=== PATIENT | female | born 1985 | race African-American/Black ===

== ENCOUNTER 2017-05-16 13:52 | Inpatient (IN) | payer OTHER ==
[2017-05-16 15:35] VITALS: BMI 25.3
--- NOTE | 2017-05-16 16:37 | HP ---
CIWA Score - CIWA Score Nausea/Vomitin Muscle Tremors: 3 Anxiety: 3 Agitation: 3 Paroxysmal Sweats: 1-Minimal Palms Moist Orientation: 0-Oriented Tacttile Disturbances: 2-Mild Itch/Numbness/Burn Auditory Disturbances: 0-None Visual Disturbances: 0-None Headache: 0-None Present CIWA-Ar Total Score: 15 Admission ROS BHS - HPI Chief Complaint: DETOX TX FOR ALCOHOL DEPENDENCE Allergies/Adverse Reactions: Allergies Allergy/AdvReac Type Severity Reaction Status Date / Time No Known Allergies Allergy Verified 01/24/12 02:03 History of Present Illness: 32 Y/O AA/FEMALE WITH A HX OF ALCOHOL AND MARIJUANA DEPENDENCE SEEKING DETOX TX. Exam Limitations: No Limitations - Ebola screening Have you traveled outside of the country in the last 21 days: No Have you had contact with anyone from an Ebola affected area: No Have you been sick,other than usual withdrawal symptoms: No Do you have a fever: No - Review of Systems Constitutional: Chills, Loss of Appetite, Night Sweats, Changes in sleep EENT: reports: Blurred Vision (WEARS RX GLASSES), Tearing, Nose Congestion (DUE TO ENVRONMENTAL ALERGIES), Dental Problems (CRACKED FRONT TOOTH/WISDOM TEETH EXTRACTIONS) Respiratory: reports: No Symptoms reported Cardiac: reports: No Symptoms Reported GI: reports: Diarrhea, Nausea, Poor Appetite, Poor Fluid Intake, Vomiting, Abdominal cramping : reports: No Symptoms Reported Musculoskeletal: reports: Back Pain Integumentary: reports: No Symptoms Reported Neuro: reports: Headache, Tremors, Unsteady Gait Endocrine: reports: No Symptoms Reported Hematology: reports: Anemia Psychiatric: reports: Orientated x3, Anxious Other Systems: Reviewed and Negative Patient History - Patient Medical History Hx Anemia: Yes (IN THE PAST) Hx Asthma: No Hx Cancer: No Hx Cardiac Disorders: No Hx Hypertension: Yes (GESTATIONAL BUT ELEVATED TODAY 146/100) Hx Hypercholesterolemia: No HX Cerebrovascular Accident: No Hx Seizures: No Hx Diabetes: No Hx Gastrointestinal Disorders: No Hx Sexually Transmitted Disorders: No Hx Renal Disease (ESRD): No Hx Thyroid Disease: No Hx Human Immunodeficiency Virus (HIV): No (NEGATIVE HX) Hx Hepatitis C: No Hx Depression: No Hx Suicide Attempt: No (DENIES) Hx Bipolar Disorder: No Hx Schizophrenia: No - Patient Surgical History Past Surgical History: Yes Hx Neurologic Surgery: No Hx Cataract Extraction: No Hx Cardiac Surgery: No Hx Lung Surgery: No Hx Breast Surgery: No Hx Breast Biopsy: No Hx Abdominal Surgery: No Hx Appendectomy: No Hx Cholecystectomy: No Hx Genitourinary Surgery: No Hx Orthopedic Surgery: No Anesthesia Reaction: No - PPD History Previous Implant?: Yes Documented Results: Negative w/o proof Implanted On Prior [facility] Admission?: No PPD to be Administered?: Yes - Reproductive History Patient is a Female of Child Bearing Age (11 -55 yrs old): Yes Last Menstrual Period: 05/03/17 Patient : No - Smoking Cessation Smoking history: Current every day smoker Have you smoked in the past 12 months: Yes Aproximately how many cigarettes per day: 4 Hx Chewing Tobacco Use: No Initiated information on smoking cessation: Yes 'Breaking Loose' booklet given: 05/16/17 - Substance & Tx. History Hx Alcohol Use: Yes (VODKA/COGNAC/BEER) Hx Substance Use: Yes (MARIJUANA) Substance Use Type: Alcohol, Marijuana Hx Substance Use Treatment: Yes (LAST TX AT [facility]) - Substances Abused Alcohol Route: Oral Frequency: 3-6 times per week Amount used: 1/2 PT / 2 16oz BEER Age of first use: 15 Date of Last Use: 05/16/17 Marijuana/Hashish Route: Smoking Frequency: Daily Amount used: 4 BLUNTS Age of first use: 15 Date of Last Use: 05/16/17 Family Disease History - Family Disease History Family Disease History: Diabetes: Mother (HTN), Other: Mother Other Family History: UNCLE WITH DM AND HTN Admission Physical Exam S - Vital Signs Vital Signs: Vital Signs - 24 hr 05/16/17 15:32 Temperature 97.3 F L Pulse Rate 68 Respiratory 20 Rate Blood Pressure 140/90 - Physical General Appearance: Yes: Moderate Distress, Irritable, Anxious HEENTM: Yes: EOMI, Normocephalic, JABIER, Pharynx Normal Respiratory: Yes: Chest Non-Tender, Lungs Clear, Normal Breath Sounds, No Respiratory Distress Neck: Yes: No masses,lesions,Nodules, Supple, Trachea in good position Breast: Yes: Breast Exam Deferred Cardiology: Yes: Regular Rhythm, Regular Rate, S1, S2 Abdominal: Yes: Normal Bowel Sounds, Non Tender, Soft Genitourinary: Yes: Other (N/C) Back: Yes: Within Normal Limits Musculoskeletal: Yes: full range of Motion, Gait Steady Extremities: Yes: Normal Range of Motion, Non-Tender Neurological: Yes: tufting machine fixer II-XII NML intact, Fully Oriented, Alert Integumentary: Yes: Dry, Warm Lymphatic: Yes: Within Normal Limits - Diagnostic (1) Alcohol dependence with uncomplicated withdrawal Current Visit: Yes Status: Acute (2) Cannabis dependence, uncomplicated Current Visit: Yes Status: Acute (3) History of anemia Current Visit: Yes Status: Suspected Cleared for Admission [facility] - Detox or Rehab [facility] Level of Care: Medically Managed Detox Regimen/Protocol: Librium [facility] Breath Alcohol Content Breath Alcohol Content: 0 Urine Pregancy Test - Result Urine Test Results: Negative- NO Line Present Urine Drug Screen - Results Drug Screen Negative: No Urine Drug Screen Results: THC-Marijuana
[2017-05-16] MEDS ORDERED: NICOTINE POLACRILEX 2 MG GUM BC PRN (16:55)
[2017-05-16] MEDS ORDERED: chlordiazePOXIDE HCL 25 MG CAPSULE PO ONE (16:55)
[2017-05-16] MEDS ORDERED: guaiFENesin/D-METHORPHAN HB 10 ML UNIT-DOSE CUPS PO PRN (16:55)
[2017-05-16] MEDS ORDERED: chlordiazePOXIDE HCL 25 MG CAPSULE PO PRN (16:55)
[2017-05-16] MEDS ORDERED: IBUPROFEN 400 MG TABLET (FP) PO PRN (16:55)
[2017-05-16] MEDS ORDERED: LOPERAMIDE HCL 2 MG CAPSULE PO PRN (16:55)
[2017-05-16] MEDS ORDERED: P-EPHED 60MG/TRIPROLIDI 2.5MG TABLET PO PRN (16:55)
[2017-05-16] MEDS ORDERED: MAGNESIUM HYDROX 2400MG/30ML ORAL SUSPENSION 30 ML CUP PO PRN (16:55)
[2017-05-16] MEDS ORDERED: MENTHOL/PHENOL 1 EACH UD MM PRN (16:55)
[2017-05-16] MEDS ORDERED: MAGNESIUM CITRATE 300 ML BOTTLE PO PRN (16:55)
[2017-05-16] MEDS ORDERED: MAG HYDROX/AL HYDROX/SIMETH 30 ML UNIT-DOSE CUP PO PRN (16:55)
[2017-05-16] MEDS ORDERED: ACETAMINOPHEN 325 MG TABLET (FP) PO PRN (16:55)
[2017-05-16] MEDS: HYDROCHLOROTHIAZIDE 25 MG TABLET (FP) PO SCH (18:34)
[2017-05-16] MEDS: chlordiazePOXIDE HCL 25 MG CAPSULE PO SCH ×2 (18:36→22:07)
[2017-05-16] MEDS: NICOTINE 14 MG/24 HOURS TOPICAL PATCH TD SCH (18:44)
[2017-05-16 21:14] LABS: URINE APPEARANCE CLEAR; URINE BILIRUBIN NEGATIVE (NEGATIVE); URINE BLOOD 1+ (NEGATIVE); URINE COLOR YELLOW; URINE GLUCOSE (UA) NEGATIVE (NEGATIVE); URINE KETONE NEGATIVE (NEGATIVE); URINE LEUK ESTERASE NEGATIVE (NEGATIVE); URINE NITRITE NEGATIVE (NEGATIVE); URINE PROTEIN NEGATIVE (NEGATIVE); URINE UROBILINOGEN NEGATIVE mg/dL (0.2-1.0)
[2017-05-16] MEDS: THIAMINE HCL 100 MG TABLET (FP) PO SCH (22:07)
[2017-05-16] MEDS: diphenhydrAMINE HCL 50 MG CAPSULE PO PRN (22:07)
[2017-05-16 22:26] LABS: URINE BACTERIA RARE /hpf (NONE SEEN); URINE MUCUS RARE; URINE RBC 3 /hpf (0-3); URINE WBC 1 /hpf (3-5)
[2017-05-17] MEDS: chlordiazePOXIDE HCL 25 MG CAPSULE PO SCH ×4 (05:06→22:03)
--- NOTE | 2017-05-17 09:15 | PN ---
S CIWA - CIWA Score Nausea/Vomitin Muscle Tremors: 3 Anxiety: 2 Agitation: 2 Paroxysmal Sweats: 1-Minimal Palms Moist Orientation: 0-Oriented Tacttile Disturbances: 1-Very Mild Itch/Numbness Auditory Disturbances: 1-Very Mild Visual Disturbances: 1-Very Mild Sensitivity Headache: 2-Mild CIWA-Ar Total Score: 16 S Progress Note (SOAP) Subjective: ALERT,IRRITABLE,ANXIOUS,INTERRUPTED SLEEP,TREMOR Objective: 05/17/17 09:13 Vital Signs Temperature 97.5 F L 05/17/17 06:18 Pulse Rate 59 L 05/17/17 06:18 Respiratory Rate 16 05/17/17 06:18 Blood Pressure 118/67 05/17/17 06:18 O2 Sat by Pulse Oximetry (%) EKG SINUS BRADYCARDIA 54/MIN NO CHEST PAIN,NO SOB,NO DIZZINESS Laboratory Last Values Urine Color Yellow 05/16/17 20:59 Urine Appearance Clear 05/16/17 20:59 Urine pH 6.0 (5.0-8.0) 05/16/17 20:59 Urine Protein Negative (NEGATIVE) 05/16/17 20:59 Urine Glucose (UA) Negative (NEGATIVE) 05/16/17 20:59 Urine Ketones Negative (NEGATIVE) 05/16/17 20:59 Urine Blood 1+ (NEGATIVE) H 05/16/17 20:59 Urine Nitrite Negative (NEGATIVE) 05/16/17 20:59 Urine Bilirubin Negative (NEGATIVE) 05/16/17 20:59 Urine Urobilinogen Negative mg/dL (0.2-1.0) 05/16/17 20:59 Ur Leukocyte Esterase Negative (NEGATIVE) 05/16/17 20:59 Urine RBC 3 /hpf (0-3) 05/16/17 20:59 Urine WBC 1 /hpf (3-5) 05/16/17 20:59 Ur Epithelial Cells Rare /hpf (FEW) 05/16/17 20:59 Urine Bacteria Rare /hpf (NONE SEEN) 05/16/17 20:59 Urine Mucus Rare 05/16/17 20:59 LABS PENDING Assessment: 05/17/17 09:15 WITHDRAWAL SYMPTOM Plan: CONTINUE DETOX
[2017-05-17] MEDS: NICOTINE 14 MG/24 HOURS TOPICAL PATCH TD SCH (10:04)
[2017-05-17] MEDS: PRENATAL VITAMINS W/ FOLIC ACID TABLET (FP) PO SCH (10:04)
[2017-05-17] MEDS: HYDROCHLOROTHIAZIDE 25 MG TABLET (FP) PO SCH (10:05)
[2017-05-17 10:21] LABS: MCH 31.1 pg (25.7-33.7); MCHC 35.2 g/dl (32.0-36.0); MEAN CELL VOLUME 88.2 fl (80-96); MEAN PLT VOLUME 8.6 fl (7.5-11.1); PLATELET COUNT 182 K/MM3 (134-434); RDW 14.8 % (11.6-15.6); WHITE BLOOD COUNT 11.1 K/mm3 (4.0-10.0)
[2017-05-17 10:35] LABS: ALBUMIN 3.5 g/dl (3.4-5.0); ALK PHOS 63 U/L (45-117); ANION GAP 7 (8-16); BILIRUBIN,TOTAL 0.3 mg/dL (0.2-1.0); CALCIUM 9.2 mg/dL (8.5-10.1); CO2 28 mmol/L (21-32); CREATININE 0.7 mg/dL (0.55-1.02); GLUCOSE,RANDOM 95 mg/dL (74-106); SGOT/AST 8 U/L (15-37); SGPT/ALT 16 U/L (12-78); TOT PROT 6.8 g/dl (6.4-8.2)
[2017-05-17 12:04] LABS: SICKLE CELL SCREEN NEGATIVE (NEGATIVE)
[2017-05-17] MEDS: THIAMINE HCL 100 MG TABLET (FP) PO SCH (22:03)
[2017-05-18] MEDS: chlordiazePOXIDE HCL 25 MG CAPSULE PO SCH ×2 (05:22→10:13)
--- NOTE | 2017-05-18 09:31 | PN ---
S CIWA - CIWA Score Nausea/Vomitin Muscle Tremors: 3 Anxiety: 3 Agitation: 2 Paroxysmal Sweats: No Perspiration Orientation: 0-Oriented Tacttile Disturbances: 1-Very Mild Itch/Numbness Auditory Disturbances: 1-Very Mild Visual Disturbances: 1-Very Mild Sensitivity Headache: 2-Mild CIWA-Ar Total Score: 16 BHS Progress Note (SOAP) Subjective: ALERT,IRRITABLE,ANXIOUS,INTERRUPTED SLEEP Objective: 05/18/17 09:30 Vital Signs Temperature 96.8 F L 05/18/17 06:09 Pulse Rate 74 05/18/17 06:09 Respiratory Rate 18 05/18/17 06:09 Blood Pressure 117/60 05/18/17 06:09 O2 Sat by Pulse Oximetry (%) 05/18/17 09:30 Laboratory Last Values WBC 11.1 K/mm3 (4.0-10.0) H 05/17/17 07:00 RBC 4.51 M/mm3 (3.60-5.2) D 05/17/17 07:00 Hgb 14.0 GM/dL (10.7-15.3) D 05/17/17 07:00 Hct 39.8 % (32.4-45.2) D 05/17/17 07:00 MCV 88.2 fl (80-96) 05/17/17 07:00 MCH 31.1 pg (25.7-33.7) D 05/17/17 07:00 MCHC 35.2 g/dl (32.0-36.0) 05/17/17 07:00 RDW 14.8 % (11.6-15.6) 05/17/17 07:00 Plt Count 182 K/MM3 (134-434) 05/17/17 07:00 MPV 8.6 fl (7.5-11.1) 05/17/17 07:00 Sickle Cell Screen Negative (NEGATIVE) 05/17/17 07:00 Sodium 136 mmol/L (136-145) 05/17/17 07:00 Potassium 3.8 mmol/L (3.5-5.1) 05/17/17 07:00 Chloride 101 mmol/L (98-107) 05/17/17 07:00 Carbon Dioxide 28 mmol/L (21-32) 05/17/17 07:00 Anion Gap 7 (8-16) L 05/17/17 07:00 BUN 14 mg/dL (7-18) D 05/17/17 07:00 Creatinine 0.7 mg/dL (0.55-1.02) D 05/17/17 07:00 Creat Clearance w eGFR > 60 (>60) 05/17/17 07:00 Random Glucose 95 mg/dL (74-106) D 05/17/17 07:00 Calcium 9.2 mg/dL (8.5-10.1) 05/17/17 07:00 Total Bilirubin 0.3 mg/dL (0.2-1.0) D 05/17/17 07:00 AST 8 U/L (15-37) L D 05/17/17 07:00 ALT 16 U/L (12-78) D 05/17/17 07:00 Alkaline Phosphatase 63 U/L (45-117) D 05/17/17 07:00 Total Protein 6.8 g/dl (6.4-8.2) 05/17/17 07:00 Albumin 3.5 g/dl (3.4-5.0) D 05/17/17 07:00 Urine Color Yellow 05/16/17 20:59 Urine Appearance Clear 05/16/17 20:59 Urine pH 6.0 (5.0-8.0) 05/16/17 20:59 Ur Specific [place] 1.025 (1.005-1.025) 05/16/17 20:59 Urine Protein Negative (NEGATIVE) 05/16/17 20:59 Urine Glucose (UA) Negative (NEGATIVE) 05/16/17 20:59 Urine Ketones Negative (NEGATIVE) 05/16/17 20:59 Urine Blood 1+ (NEGATIVE) H 05/16/17 20:59 Urine Nitrite Negative (NEGATIVE) 05/16/17 20:59 Urine Bilirubin Negative (NEGATIVE) 05/16/17 20:59 Urine Urobilinogen Negative mg/dL (0.2-1.0) 05/16/17 20:59 Ur Leukocyte Esterase Negative (NEGATIVE) 05/16/17 20:59 Urine RBC 3 /hpf (0-3) 05/16/17 20:59 Urine WBC 1 /hpf (3-5) 05/16/17 20:59 Ur Epithelial Cells Rare /hpf (FEW) 05/16/17 20:59 Urine Bacteria Rare /hpf (NONE SEEN) 05/16/17 20:59 Urine Mucus Rare 05/16/17 20:59 RPR Titer Nonreactive (NONREACTIVE) 05/17/17 07:00 Assessment: 05/18/17 09:30 WITHDRAWAL SYMPTOM Plan: CONTINUE DETOX,ENCOURAGE ORAL FLUID
[2017-05-18] MEDS: HYDROCHLOROTHIAZIDE 25 MG TABLET (FP) PO SCH (10:13)
[2017-05-18] MEDS: PRENATAL VITAMINS W/ FOLIC ACID TABLET (FP) PO SCH (10:13)
[2017-05-18] MEDS: NICOTINE 14 MG/24 HOURS TOPICAL PATCH TD SCH (10:16)
[2017-05-18] MEDS: chlordiazePOXIDE 5 MG CAPSULE PO SCH ×2 (17:28→22:09)
--- NOTE | 2017-05-18 20:03 | EKG ---
Test Reason : Blood Pressure : / mmHG Vent. Rate : 054 BPM Atrial Rate : 054 BPM P-R Int : 132 ms QRS Dur : 084 ms QT Int : 406 ms P-R-T Axes : 048 068 062 degrees QTc Int : 385 ms SINUS BRADYCARDIA OTHERWISE NORMAL ECG NO PREVIOUS ECGS AVAILABLE Confirmed by WINNIE DEL REAL MD ([id number]) on 05/18/2017 8:02:41 PM Referred By: Confirmed By:WINNIE DEL REAL MD
[2017-05-18] MEDS: THIAMINE HCL 100 MG TABLET (FP) PO SCH (22:09)
[2017-05-18] MEDS: diphenhydrAMINE HCL 50 MG CAPSULE PO PRN (22:10)
[2017-05-19] MEDS: chlordiazePOXIDE 5 MG CAPSULE PO SCH ×2 (06:14→10:07)
[2017-05-19] MEDS: PRENATAL VITAMINS W/ FOLIC ACID TABLET (FP) PO SCH (10:07)
[2017-05-19] MEDS: NICOTINE 14 MG/24 HOURS TOPICAL PATCH TD SCH (10:08)
--- NOTE | 2017-05-19 10:08 | PN ---
S Progress Note (SOAP) Subjective: ALERT,IRRITABLE,INTERRUPTED SLEEP Objective: 05/19/17 10:06 Vital Signs Temperature 97.7 F 05/19/17 06:09 Pulse Rate 84 05/19/17 06:09 Respiratory Rate 18 05/19/17 06:09 Blood Pressure 109/60 05/19/17 06:09 O2 Sat by Pulse Oximetry (%) Assessment: 05/19/17 10:06 WITHDRAWAL SYMPTOM Plan: CONTINUE DETOX,DISCHARGE IN AM
--- NOTE | 2017-05-19 10:23 | PN ---
BHS Progress Note Note: ADDENDUM PATIENT BP HAS BEEN NORMAL,WILL D/C HYDROCHOLOROTHIAZIDE, P MONITORING
[2017-05-19] MEDS: HYDROCHLOROTHIAZIDE 25 MG TABLET (FP) PO SCH (11:02)
[2017-05-19] MEDS: chlordiazePOXIDE HCL 10 MG CAPSULE PO SCH ×2 (17:58→22:09)
[2017-05-19] MEDS: diphenhydrAMINE HCL 50 MG CAPSULE PO PRN (22:09)
[2017-05-19] MEDS: THIAMINE HCL 100 MG TABLET (FP) PO SCH (22:09)
[2017-05-20] MEDS: chlordiazePOXIDE HCL 10 MG CAPSULE PO SCH (05:46)
[2017-05-20 06:23] VITALS: BP 102/70; PULSE 87; TEMP 97.5
--- NOTE | 2017-05-20 10:22 | DS ---
[facility] Detox Discharge Summary Admission Date: 05/16/17 Discharge Date: 05/20/17 - History Present History: Alcohol Dependence, Cannabis Dependence - Physical Exam Results Vital Signs: Vital Signs Temperature 97.5 F L 05/20/17 06:00 Pulse Rate 87 05/20/17 06:00 Respiratory Rate 16 05/20/17 06:00 Blood Pressure 102/70 05/20/17 06:00 O2 Sat by Pulse Oximetry (%) - Treatment Hospital Course: Detox Protocol Followed, Detoxed Safely, Responded well, Discharged Condition Good, Rehab Referral Accepted - Medication Discharge Medications: Ambulatory Orders NK [No Known Home Medication] 05/16/17 - Diagnosis (1) Alcohol dependence with uncomplicated withdrawal Current Visit: Yes Status: Chronic (2) Cannabis dependence, uncomplicated Current Visit: Yes Status: Chronic (3) History of anemia Current Visit: Yes Status: Suspected (4) Vaginal delivery Current Visit: No Status: Active - AMA Did Patient Leave Against Medical Advice: No (pt will f/u with rehab tomorrow)
== END 2017-05-20 10:25 | disposition home or self-care (01) | DRG 775 ==
LOC: YASAS 13:52 → Y6N 17:19
PROVIDERS: ADMIT Internal Medicine; ATTEND Internal Medicine
PROC: HZ2ZZZZ Detoxification Services for Substance Abuse Treatment (ICD-10-PCS; principal; 2017-05-16)
DX: F10.230 Alcohol dependence with withdrawal, uncomplicated (principal); F12.20 Cannabis dependence, uncomplicated; F17.210 Nicotine dependence, cigarettes, uncomplicated; R00.1 Bradycardia, unspecified; Z86.2 Personal history of diseases of the blood and blood-forming organs and certain disorders involving the immune mechanism; R03.0 Elevated blood-pressure reading, without diagnosis of hypertension
CPT/HCPCS: 36415; 80053; 81003; 81015; 85027; 85660; 86593; 93005; 93010

== ENCOUNTER 2025-03-29 17:43 | Emergency (ER) | payer OTHER ==
[2025-03-29 17:54] VITALS: BP 124/85; PULSE 100; RESP 18; TEMP 98.7; BMI 26.4
[2025-03-29] MEDS ORDERED: LIDOCAINE HCL/PF 1% SDV 5ML VIAL ONE (19:44)
[2025-03-29] MEDS ORDERED: SULFAMETHOXAZOLE/TRIMETHOPRIM 800MG/160MG D.S. TABLET ONE (20:19)
[2025-03-29] MEDS: SULFAMETHOXAZOLE/TRIMETHOPRIM 800MG/160MG D.S. TABLET PO ONE (20:24)
== END 2025-03-29 20:32 | disposition home or self-care (01) ==
LOC: JERFT 17:43
PROC: 0H9JXZZ Drainage of Left Upper Leg Skin, External Approach (ICD-10-PCS; principal; 2025-03-29)
DX: L02.416 Cutaneous abscess of left lower limb (principal); R00.0 Tachycardia, unspecified
CPT/HCPCS: 99284-25